=== PATIENT | female | born 1970 | race Hispanic/Latino ===

== ENCOUNTER 2022-07-31 23:07 | Observation (INO) | payer SELFPAY ==
[2022-07-31] MEDS ORDERED: Morphine 4 MG/ML VIAL ONE (23:28)
[2022-08-01] MEDS ORDERED: Ampicillin/Sulbactam 3 GM in Sodium Chloride 0.9% 100 ML IVPB SCH (00:45)
[2022-08-01] MEDS ORDERED: Dextrose 5% in Water 1,000 ML IV PRN (02:26)
[2022-08-01] MEDS ORDERED: HumaLOG 300 UNITS/3 ML VIAL SC PRN (02:26)
[2022-08-01] MEDS ORDERED: Dextrose 50% Abboject 50 ML SYRINGE SLOW IVP PRN (02:26)
[2022-08-01] MEDS ORDERED: Acetaminophen 325 MG TAB PO PRN (02:27)
[2022-08-01] MEDS ORDERED: Ondansetron ODT 4 MG TAB PO PRN (02:27)
[2022-08-01] MEDS ORDERED: hydrALAZINE 20 MG/ML VIAL SLOW IVP PRN (02:28)
[2022-08-01 03:01] VITALS: BMI 27.7
[2022-08-01] MEDS: Sodium Chloride 0.9% 1,000 ML IV SCH ×3 (03:47→17:02)
[2022-08-01 05:30] LABS: SARS-CoV-2 NAA Rapid Test Not Detected (NotDetected)
[2022-08-01 05:35] LABS: #Lymphocytes 0.9 thou/uL (1.20-3.40); %Basophils 0.2 % (0.0-1.0); %Eosinophils 0.1 % (0.0-10.0); %Lymphocytes 11.7 % (21.0-51.0); %Monocytes 0.4 % (0.0-10.0); %Neutrophils 87.5 % (42.0-75.0); Mean Corpuscular HGB CONC 33.5 g/dL (32.0-36.0); Mean Corpuscular Hemoglobin 31.2 pg (27.0-31.0); Mean Corpuscular Volume 93.2 fL (78.0-98.0); Mean Platelet Volume 9.3 fL (7.4-10.4); Platelet Count 243 thou/uL (130-400); RBC Distribution Width 11.2 % (11.5-14.5); Red Blood Cell (RBC) Count 3.85 mill/uL (4.20-5.40)
[2022-08-01 05:41] LABS: Hemoglobin A1c Greater than 14.0 % (4.0-6.0)
[2022-08-01 05:59] LABS: Anion Gap 16 mmol/L (10-20); BUN (Urea Nitrogen) 24 mg/dL (7.0-18.7); Calc. Creatinine Clearance 100 mL/min (70-130); Calcium 9.2 mg/dL (7.8-10.44); Carbon Dioxide 22 mmol/L (22-29); Chloride 104 mmol/L (98-107); Estimated GFR 104; Glucose 357 mg/dL (70-105); Potassium 4.7 mmol/L (3.5-5.1); Sodium 137 mmol/L (136-145)
[2022-08-01] MEDS: Morphine 4 MG/ML VIAL SLOW IVP PRN ×3 (06:00→15:27)
[2022-08-01] MEDS: Ampicillin/Sulbactam 3 GM in Sodium Chloride 0.9% 100 ML IVPB SCH ×3 (06:00→17:23)
[2022-08-01] MEDS: HumaLOG 300 UNITS/3 ML VIAL SC PRN ×2 (06:01→11:49)
[2022-08-01] MEDS ORDERED: Insulin Glargine 30 UNITS/0.3 ML VIAL SC SCH (07:09)
[2022-08-01] MEDS ORDERED: Iopamidol-370 76% 500 ML 1 ML ONE (09:40)
[2022-08-01] MEDS: Ondansetron PF 4 MG/2 ML Vial IVP PRN ×2 (10:44→22:57)
[2022-08-01] MEDS ORDERED: Oxymetazoline HCl 0.05% (30 ML BOT) ONE (17:33)
[2022-08-01] MEDS ORDERED: Chlorhexidine Gluconate 15 ML UDCUP SSP ONE (18:08)
[2022-08-01] MEDS ORDERED: Bacitracin Zinc Ointment 30 gm TUBE ONE (18:08)
[2022-08-01] MEDS ORDERED: Bupivacaine/Epinephrine 0.25% 30 ML VIAL ONE (18:08)
[2022-08-01] MEDS ORDERED: Midazolam HCl 2 mg/2 ml Vial ONE (18:52)
[2022-08-01] MEDS ORDERED: fentaNYL Citrate/PF 100 MCG/2 ML SYRINGE ONE ×4 (18:52→21:39)
[2022-08-01] MEDS ORDERED: metFORMIN 850 MG TAB PO SCH (19:00)
[2022-08-01] MEDS ORDERED: NEOSTIGMINE 3 MG/3 ML SYR 3 MG/3 ML SYRINGE ONE (19:34)
[2022-08-01] MEDS ORDERED: PROPOFOL 200 MG/20 ML VIAL ONE (19:34)
[2022-08-01] MEDS ORDERED: Phenylephrine 10 MG/ML VIAL ONE (19:34)
[2022-08-01] MEDS ORDERED: Ondansetron PF 4 MG/2 ML Vial ONE ×2 (19:34→21:30)
[2022-08-01] MEDS ORDERED: Rocuronium Bromide 10 MG/ML (10ML VIAL) ONE (19:34)
[2022-08-01] MEDS ORDERED: Lidocaine 1% MPF 2 ML VIAL ONE (19:34)
[2022-08-01] MEDS ORDERED: Glycopyrrolate 0.2 MG/ML 5 ML SYRINGE ONE (19:34)
[2022-08-01] MEDS ORDERED: Promethazine HCl 25 MG/ML VIAL IVPB PRN (20:46)
[2022-08-01] MEDS ORDERED: Promethazine HCl 25 MG/ML VIAL IM PRN (20:46)
[2022-08-01] MEDS ORDERED: Ondansetron HCl/PF 4 MG/2 ML Vial IVP PRN (20:46)
[2022-08-02] MEDS: Ampicillin/Sulbactam 3 GM in Sodium Chloride 0.9% 100 ML IVPB SCH ×4 (00:01→18:16)
[2022-08-02] MEDS: Chlorhexidine Gluconate 15 ML UDCUP SSP SCH ×4 (00:01→22:03)
[2022-08-02] MEDS: Morphine 4 MG/ML VIAL SLOW IVP PRN ×3 (04:01→15:57)
[2022-08-02 05:40] LABS: #Lymphocytes 1.3 thou/uL (1.20-3.40); #Monocytes 0.3 thou/uL (0.11-0.59); #Neutrophils 9.4 thou/uL (1.40-6.50); %Basophils 0.1 % (0.0-1.0); %Eosinophils 0.1 % (0.0-10.0); %Lymphocytes 12.2 % (21.0-51.0); %Monocytes 2.6 % (0.0-10.0); Hemoglobin 11.2 g/dL (12.0-16.0); Mean Corpuscular HGB CONC 33.3 g/dL (32.0-36.0); Mean Corpuscular Hemoglobin 31.1 pg (27.0-31.0); Mean Corpuscular Volume 93.4 fL (78.0-98.0); Mean Platelet Volume 9.2 fL (7.4-10.4); Platelet Count 246 thou/uL (130-400); RBC Distribution Width 11.4 % (11.5-14.5); Red Blood Cell (RBC) Count 3.59 mill/uL (4.20-5.40)
[2022-08-02] MEDS: HumaLOG 300 UNITS/3 ML VIAL SC PRN (05:52)
[2022-08-02 06:01] LABS: Anion Gap 13 mmol/L (10-20); BUN (Urea Nitrogen) 16 mg/dL (7.0-18.7); Calc. Creatinine Clearance 120 mL/min (70-130); Calcium 8.4 mg/dL (7.8-10.44); Carbon Dioxide 21 mmol/L (22-29); Chloride 105 mmol/L (98-107); Estimated GFR 110; Glucose 230 mg/dL (70-105); Potassium 3.8 mmol/L (3.5-5.1); Sodium 135 mmol/L (136-145)
[2022-08-02] MEDS: Sodium Chloride 0.9% 1,000 ML IV SCH ×2 (08:55→19:52)
[2022-08-02] MEDS: Ondansetron PF 4 MG/2 ML Vial IVP PRN (08:55)
[2022-08-02] MEDS: Lisinopril 10 MG TAB PO SCH (09:39)
[2022-08-02] MEDS: metFORMIN 850 MG TAB PO SCH ×2 (09:39→17:35)
[2022-08-02] MEDS ORDERED: Ibuprofen 800 MG TAB PO PRN (14:58)
[2022-08-02] MEDS: HYDROcodone/Acetaminophen 5/325 mg Tablet PO PRN (18:16)
[2022-08-03] MEDS: HYDROcodone/Acetaminophen 5/325 mg Tablet PO PRN ×3 (00:23→14:43)
[2022-08-03] MEDS: Ampicillin/Sulbactam 3 GM in Sodium Chloride 0.9% 100 ML IVPB SCH ×3 (00:24→15:33)
[2022-08-03] MEDS: HumaLOG 300 UNITS/3 ML VIAL SC PRN (07:32)
[2022-08-03] MEDS: Sodium Chloride 0.9% 1,000 ML IV SCH ×2 (07:48→15:34)
[2022-08-03 08:35] VITALS: TEMP 97.8
[2022-08-03] MEDS: Chlorhexidine Gluconate 15 ML UDCUP SSP SCH (08:37)
[2022-08-03] MEDS: metFORMIN 850 MG TAB PO SCH ×2 (08:38→17:04)
[2022-08-03] MEDS: Lisinopril 10 MG TAB PO SCH (08:39)
[2022-08-03 11:53] VITALS: BP 166/98
== END 2022-08-03 14:10 | disposition home or self-care (01) ==
LOC: ERS 23:07 → SURG A 08-01 00:25
PROVIDERS: ADMIT Internal Medicine; ATTEND Internal Medicine
PROC: 0CDXXZ0 Extraction of Lower Tooth, Single, External Approach (ICD-10-PCS; principal; 2022-08-01)
PROC: 0W9330Z Drainage of Oral Cavity and Throat with Drainage Device, Percutaneous Approach (ICD-10-PCS; 2022-08-01)
DX: K02.9 Dental caries, unspecified (principal); K12.2 Cellulitis and abscess of mouth; I10 Essential (primary) hypertension; I25.10 Atherosclerotic heart disease of native coronary artery without angina pectoris; E11.9 Type 2 diabetes mellitus without complications; Z95.5 Presence of coronary angioplasty implant and graft; Z20.822 Contact with and (suspected) exposure to COVID-19
CPT/HCPCS: 36415; 36416; 70491; 80048; 83036; 85025; 87070; 87205; 96361; 96365; 96375; J0295; J1815; J2250; J2270; J2370; J2405; J2704; J3490; J7050; Q0162; Q9967; U0002